=== PATIENT | female | born 1970 | race African-American/Black ===

== ENCOUNTER 2017-01-01 04:10 | Emergency (ER) | payer BC ==
--- NOTE | ~2017-01-01 | CT16 ---
[facility] A Service of [facility] RADIOLOGY TEXT RESULTS PATIENT: KAITLIN WILKINSON LOCATION: [facility] : 66 UNIT #: [id number] AGE: [address]: Blayne Hill MD SEX: F ORDER DR: [id number] [facility] [address] [place], [place] [address] [id number] E MR#: [id number] Acc #: [id number] NAME: KAITLIN WILKINSON. : 1970 SEX: F STUDY DATE/TIME: 01/01/2017 7:46 UNIT: [facility] ROOM: STUDY DESCRIPTION: CT Angio Chest for PE Attending Physician: Blayne Hill M.D. Ordering Physician: Blayne Hill M.D. Primary Care Physician: [facility] MEDICAL IMAGING REPORT This report is preliminary unless electronic signature is present REVISED REPORT SEE ADDENDUM EXAM CTA chest with contrast, pulmonary embolism protocol. DATE 01/01/2017 HISTORY Shortness of breath with exertion while laying flat for 5 days. Cough. Elevated D-dimer level today. Additional history of diabetes and hypertension. COMPARISON AP portable chest, 01/01/2017 at 0517. PROCEDURE 2 mm axial images through the chest after intravenous contrast administration. 3-D coronal MIP reformatted images were obtained. This CT exam was performed with one or more of the following radiation dose reduction techniques: automatic exposure control, adjustment of mA and/or kV according to patient size, and iterative reconstruction. FINDINGS No pulmonary embolism. No thoracic aortic aneurysm is seen. Small right greater left pleural effusions are present. The right pleural effusion layers to a depth of 4.1 cm. There is mild cardiac enlargement, particularly involving the left ventricle. No pericardial effusion is seen. There are mildly prominent mediastinal lymph nodes, including a precarinal [facility] A Service [facility] RADIOLOGY TEXT RESULTS PATIENT: KAITLIN WILKINSON LOCATION: [facility] : 66 UNIT #: [id number] AGE: [address]: Blayne Hill MD SEX: F ORDER DR: node measuring 1.5 cm short axis, a prevascular node measuring 7 mm short axis, subcarinal node measuring 2 cm short axis. Mildly prominent bilateral hilar lymph nodes are also seen, including a left hilar node measuring 1.3 cm short axis. Interstitial thickening is demonstrated within both lungs. Fine ground-glass densities are scattered in both lungs, somewhat greatest in an upper lobe distribution. Constellation of findings is favored to represent features of interstitial and alveolar pulmonary edema. There is no pneumothorax. Cholecystectomy changes are present. Remainder of the included upper abdominal organs are within normal limits. No acute osseous abnormalities are identified. IMPRESSION 1. No pulmonary embolism. 2. Constellation of findings is favored to represent changes of interstitial and alveolar pulmonary edema with small right greater than left pleural effusions. 3. Mild cardiac enlargement. 4. Cholecystectomy. Dictated by... Clarita Naranjo M.D. THIS IS AN ELECTRONICALLY VERIFIED REPORT Clarita Naranjo M.D. at 01/02/2017 8:[address] [facility]/w TD: 01/01/2017 09:33 JOB #: [id number] ADDENDUM Not mentioned in the above impression, there are mildly prominent mediastinal and hilar lymph nodes which are favored to represent benign reactive changes. Consider correlation with outside CT chest if available to document stability or short-term CT chest followup. Dictated by... [facility]. [facility] A Service of [facility] RADIOLOGY TEXT RESULTS PATIENT: KAITLIN WILKINSON LOCATION: [facility] #: [id number] : 66 UNIT #: [id number] AGE: [address]: Blayne Hill MD SEX: F ORDER DR: Clarita Naranjo M.D. THIS IS AN ELECTRONICALLY VERIFIED REPORT Clarita Naranjo M.D. at 01/04/2017 7:37 AM LL/tmw TD: 01/01/2017 09:41 JOB #: [id number] CC: Sovera/invision Please Delete MEDICAL IMAGING REPORT Page 1 of 1 COPY
--- NOTE | ~2017-01-01 | EKG ---
PATIENT: KAITLIN WILKINSON UNIT #: [id number] Ventricular Rate: 103 BPM Atrial Rate: 103 BPM P-R Interval: 146 ms QRS Duration: 96 ms Q-T Interval: 404 ms QTC Calculation(Bezet): 529 ms P [place]: 57 degrees Calculated R [place]: -12 degrees Calculated T [place]: 58 degrees Diagnosis Line: Sinus tachycardia Diagnosis Line: Possible Left atrial enlargement Diagnosis Line: Possible Anterior infarct , age undetermined Diagnosis Line: Abnormal ECG Diagnosis Line: No previous ECGs available Diagnosis Line: Confirmed by CHARLENE FARIA MD ([id number]) on 01/02/2017 Diagnosis Line: 11:33:21 PM INTERPRETING MD: GIANA DREW
--- NOTE | ~2017-01-01 | CR72 ---
[facility] A Service of [facility] RADIOLOGY TEXT RESULTS PATIENT: KAITLIN WILKINSON LOCATION: [facility] : 66 UNIT #: [id number] AGE: [address]: Blayne Hill MD SEX: F ORDER DR: [id number] [id number] [place], [place] [address] [id number] P MR#: [id number] Acc #: [id number] NAME: KAITLIN WILKINSON. : 1970 SEX: F STUDY DATE/TIME: 01/01/2017 5:17 UNIT: [facility] ROOM: STUDY DESCRIPTION: CR Chest Single View Portable Attending Physician: Blayne Hill M.D. Ordering Physician: Lonny Jett M.D. Primary Care Physician: [facility] MEDICAL IMAGING REPORT This report is preliminary unless electronic signature is present EXAM AP portable chest 01/01/2017 HISTORY 46-year-old female in the ED complaining of 5-day history of shortness of air and cough. TECHNIQUE AP portable upright chest x-ray. FINDINGS Mild cardiomegaly. Probable mild interstitial edema with small bilateral pleural effusions and bibasilar pulmonary atelectasis, greater on the right. These findings are new since the previous study of 06/26/2011. IMPRESSION Cardiomegaly, possible mild vascular congestion. Small pleural effusions, larger on the right. Dictated by... Man Callejas M.D. THIS IS AN ELECTRONICALLY VERIFIED REPORT Man Callejas M.D. at 01/01/2017 9:54 PM PAULINEW/lew TD: 01/01/2017 06:05 JOB #: [id number] MEDICAL IMAGING REPORT [facility] A Service [facility] RADIOLOGY TEXT RESULTS PATIENT: KAITLIN WILKINSON LOCATION: [facility] : 66 UNIT #: [id number] AGE: [address]: Blayne Hill MD SEX: F ORDER DR: Page 1 of 1 COPY
[~2017-01-01 04:10] MED LIST: AZITHROMYCIN250 MG PO; GLUCOPHAGE500 MG PO; GLUCOTROL PO; PREDNISONE PO; VERAPAMIL HCL120 MG PO; ZITHROMAX500 MG PO
[2017-01-01 05:25] LABS: BASOPHIL# 0.1 X10e3 (0-0.3); BASOPHIL% 0.9 % (0-2.5); EOSINOPHIL# 0.1 X10e3 (0-0.7); EOSINOPHIL% 1.3 % (0.0-7.0); HEMATOCRIT 43.8 % (35.0-45.0); HEMOGLOBIN 14.2 gm/dL (12.0-16.0); LYMPHOCYTE# 3.7 X10e3 (1.0-3.5); LYMPHOCYTE% 34.7 % (17.0-45.0); MEAN CELL VOLUME 88.9 FL (83-96); MEAN CORPUSCULAR HEMOGLOBIN 28.9 PG (28-34); MEAN CORPUSCULAR HGB CONC 32.5 g/dL (30-36); MONOCYTE# 0.8 X10e3 (0-1.0); MONOCYTE% 7.8 % (3.0-12.0); NEUTROPHIL# 5.8 X10e3 (1.5-7.1); NEUTROPHIL% 55.3 % (40-75); PLATELET COUNT 145 X10e3 (140-420); RED BLOOD COUNT 4.92 X10e (3.90-5.30); RED CELL DISTRIBUTION WIDTH 16.2 % (11.0-15.5); WHITE BLOOD COUNT 10.6 X10e3 (4.0-10.5)
[2017-01-01 05:28] LABS: DIFF IND NO
[2017-01-01 05:31] LABS: POC - CKMB <1.0 ng/mL (0.0-7.9); POC - TROPONIN <0.05 ng/mL (<=0.05)
[2017-01-01 05:38] LABS: INR 1.3; PROTHROMBIN TIME (PATIENT) 14.4 SECONDS (10.0-11.7)
[2017-01-01 05:56] LABS: BUN/CREATININE RATIO 12.22; CALCIUM SERUM 9.1 mg/dL (8.4-10.2); CREATININE SERUM 0.9 mg/dL (0.6-1.4); GLOM FILT RATE Estimated 87.7 mL/min (>60); POTASSIUM 4.7 mmol/L (3.5-5.1)
== END 2017-01-01 10:58 | disposition home or self-care (01) ==
LOC: CED 04:10
PROVIDERS: Emergency Medicine
DX: I11.0 Hypertensive heart disease with heart failure (principal); I50.9 Heart failure, unspecified; E11.9 Type 2 diabetes mellitus without complications; Z90.49 Acquired absence of other specified parts of digestive tract
CPT/HCPCS: 36415; 71010; 71275; 80048; 82553; 82947; 83880; 84484; 85025; 85379; 85610; 85730; 93005; 94640; 96361; 96374; 96375; 99285; J1885; Q9967

== ENCOUNTER 2017-01-01 23:08 | Emergency (ER) | payer BC ==
--- NOTE | ~2017-01-01 | EKG ---
PATIENT: KAITLIN WILKINSON UNIT #: [id number] Ventricular Rate: 103 BPM Atrial Rate: 103 BPM P-R Interval: 146 ms QRS Duration: 92 ms Q-T Interval: 372 ms QTC Calculation(Bezet): 487 ms P [place]: 60 degrees Calculated R [place]: -5 degrees Calculated T [place]: 89 degrees Diagnosis Line: Sinus tachycardia with Premature atrial complexes Diagnosis Line: Possible Left atrial enlargement Diagnosis Line: Nonspecific T wave abnormality Diagnosis Line: Abnormal ECG Diagnosis Line: When compared with ECG of 01-JAN-2017 05:20, Diagnosis Line: (unconfirmed) Diagnosis Line: Premature atrial complexes are now Present Diagnosis Line: Confirmed by CHARLENE FARIA MD ([id number]) on 01/02/2017 Diagnosis Line: 11:53:03 PM INTERPRETING MD: GIANA DREW
--- NOTE | ~2017-01-01 | CR72 ---
[facility] A Service of [facility] RADIOLOGY TEXT RESULTS PATIENT: KAITLIN WILKINSON LOCATION: [facility] : 66 UNIT #: [id number] AGE: [address]: Wilver Wiley MD SEX: F ORDER DR: [id number] [facility] [address] [place], [place] [address] [id number] E MR#: [id number] Acc #: [id number] NAME: KAITLIN WILKINSON : 1970 SEX: F STUDY DATE/TIME: 01/02/2017 0:36 UNIT: [facility] ROOM: STUDY DESCRIPTION: CR Chest Single View Portable Attending Physician: Wilver Wiley M.D. Ordering Physician: Wilver Wiley M.D. Primary Care Physician: [facility] MEDICAL IMAGING REPORT This report is preliminary unless electronic signature is present EXAM AP portable chest, 01/02/2017. HISTORY 46-year-old female in the ED with 2-day history of shortness of air. TECHNIQUE AP portable upright chest x-ray. FINDINGS Moderate cardiomegaly, mild diffuse interstitial pulmonary edema and small bilateral pleural effusions, greater on the right. Findings suggest vascular congestion. There has been no significant change since chest x-ray and chest CT obtained yesterday. IMPRESSION 1. Cardiomegaly with mild interstitial edema and small bilateral pleural effusions. 2. No change since yesterday. Dictated by... Man Callejas M.D. THIS IS AN ELECTRONICALLY VERIFIED REPORT Man Callejas M.D. at 01/02/2017 10:00 PM BECKY/bob TD: 01/02/2017 12:19 JOB #: [id number] MEDICAL IMAGING REPORT Page 1 of 1 COPY
[2017-01-02 00:52] LABS: BASOPHIL# 0.1 X10e3 (0-0.3); BASOPHIL% 1.2 % (0-2.5); EOSINOPHIL# 0.2 X10e3 (0-0.7); EOSINOPHIL% 1.6 % (0.0-7.0); HEMATOCRIT 43.5 % (35.0-45.0); LYMPHOCYTE# 3.9 X10e3 (1.0-3.5); LYMPHOCYTE% 38.1 % (17.0-45.0); MEAN CELL VOLUME 88.3 FL (83-96); MEAN CORPUSCULAR HEMOGLOBIN 28.5 PG (28-34); MEAN CORPUSCULAR HGB CONC 32.3 g/dL (30-36); MEAN PLATELET VOLUME 10.4 FL (6.5-11.5); MONOCYTE# 0.5 X10e3 (0-1.0); MONOCYTE% 5.1 % (3.0-12.0); NEUTROPHIL# 5.6 X10e3 (1.5-7.1); PLATELET COUNT 165 X10e3 (140-420); RED BLOOD COUNT 4.93 X10e (3.90-5.30); WHITE BLOOD COUNT 10.3 X10e3 (4.0-10.5)
[2017-01-02 00:53] LABS: POC - CKMB <1.0 ng/mL (0.0-7.9); POC - TROPONIN <0.05 ng/mL (<=0.05)
[2017-01-02 00:56] LABS: DIFF IND NO
[2017-01-02 01:14] LABS: BILIRUBIN, DIRECT 0.2 mg/dL (0.0-0.2); BILIRUBIN,INDIRECT 0.5 mg/dL (0.0-0.9); BILIRUBIN,TOTAL 0.7 mg/dL (0.2-2.0); BUN/CREATININE RATIO 12.5; CALCIUM SERUM 8.9 mg/dL (8.4-10.2); CREATININE SERUM 0.8 mg/dL (0.6-1.4); GLOM FILT RATE Estimated 101.1 mL/min (>60); POTASSIUM 4.1 mmol/L (3.5-5.1); PROTEIN TOTAL SERUM 6.4 g/dL (6.0-8.3)
[2017-01-03] MEDS ORDERED: LEVEMIR100 UNITS/ SUBQ ×2 (17:52→17:53)
[2017-01-03] MEDS ORDERED: METFORMIN PO (17:52)
[2017-01-03] MEDS ORDERED: LIPITOR PO (17:54)
[2017-01-03] MEDS ORDERED: WELLBUTRIN SR150 M1 PO (17:56)
== END 2017-01-02 01:42 | disposition home or self-care (01) ==
LOC: CED 23:08
PROVIDERS: Emergency Medicine
DX: I11.0 Hypertensive heart disease with heart failure (principal); I50.9 Heart failure, unspecified; E11.9 Type 2 diabetes mellitus without complications; Z90.49 Acquired absence of other specified parts of digestive tract; F17.200 Nicotine dependence, unspecified, uncomplicated
CPT/HCPCS: 36415; 71010; 80048; 80076; 82553; 83880; 84484; 85025; 93005; 96374; 99285; J1940

== ENCOUNTER 2017-01-03 12:07 | Inpatient (IN) | payer BC ==
[~2017-01-03] VITALS: Ht 175.3 cm; Wt 87.5 kg
--- NOTE | ~2017-01-03 | DS ---
Unit #: [id number] #: [id number] Patient: KAITLIN WILKINSON [id number] [facility]. [address] [place], [place] [address] [id number] I MR#: [id number] NAME: KAITLIN WILKINSON. ROOM: 550 Age: 46 Sex: F Admission Date: 01/03/2017 : 1970 Discharge Date: Attending Physician: Tiara Barth M.D. Primary Care Physician: [facility]. DISCHARGE SUMMARY ADDENDUM REPORT The patient was to be discharged home over the weekend; however, the discharge was withheld because of hypotension. The patient's blood pressure was as low as 79/50 mmHg. Coreg was decreased to 3.125 mg b.i.d. She did receive Entresto starting 01/06/2017 but the patient remained hypotensive. Entresto was discontinued. The patient was euvolemic on examination. IV diuretics were transitioned to oral. The patient was ambulated in the hallway without any additional shortness of breath. She had no weakness or dizziness. Repeat blood pressure 101/80 mmHg. She wants to go home and is stable for discharge. MEDICATION CHANGES 1. Carvedilol 3.125 mg b.i.d. 2. Furosemide 20 mg b.i.d. 3. Lisinopril [address] Barth will make decision regarding life vest and AICD. Life vest is pending insurance approval. No work until seen in the office. Dictated by... Marilyn BarreraPSofiaRSofiaN. for Eddy Dos Santos/jon TD: 01/07/2017 15:07 JOB #: [id number] DISCHARGE SUMMARY Page 1 of 1 X Hilario Paredes APRN X DISCHARGE SUMMARY
--- NOTE | ~2017-01-03 | CO ---
Unit #: [id number] #: [id number] Patient: KAITLIN WILKINSON [id number] [address] [place], [place] [address] [id number] I MR#: [id number] NAME: KAITLIN WILKINSON. ROOM: 550 Age: 46 Sex: F Admission Date: 01/03/2017 : 1970 Attending Physician: Tiara Barth M.D. Primary Care Physician: [facility] Consultation Date: 01/04/2017 CONSULTATION REPORT REASON FOR CONSULTATION Uncontrolled diabetes mellitus. HISTORY OF PRESENT ILLNESS This is a 46-year-old female with history of type 2 diabetes mellitus, poorly controlled; noncompliance with the diet and medications; history of tobacco use; history of alcohol use. She is admitted with increasing shortness of air, palpitations, increased lower extremity swelling for last few weeks. She has been admitted with the impression of the acute systolic heart failure. She has ejection fraction of only 10%. On her labs, she was found to have the A1c of 11.7%. I have been asked to see the patient for further management. PAST MEDICAL HISTORY Type 2 diabetes mellitus, tobacco use, depression. FAMILY HISTORY Noncontributory. ALLERGIES Reviewed with the patient, she has no known drug allergies. MEDICATIONS At home, Glucophage 1000 mg daily, Levemir 28 units in the morning, Levemir 18 units at bedtime, Lipitor doses on 80 mg daily, Wellbutrin 150 mg b.i.d. REVIEW OF SYSTEMS 12-point review of system is completed remarkable as noted in HPI for the lower extremity swelling, shortness of air, palpitations, hyperglycemia. Declines any urgency, frequency, or dysuria. No chest pains. Rest of the 12-point review of system is unremarkable. PHYSICAL EXAMINATION GENERAL: She looks comfortable in the bed, lying in the bed. VITAL SIGNS: Temperature 98.5, respiratory rate 18, blood pressure 100/71. Weight is 192 pounds. BMI is 28. HEENT: EOMI. Pupils equally reactive to light. NECK: Supple. No thyromegaly noted. CHEST: Good air entry. CVS: Regular rhythm. No murmurs. ABDOMEN: Soft and nontender. Bowel sounds positive. EXTREMITIES: She does have an edema. No ulcers. NEUROLOGIC: Nonfocal. Moving all extremities. Unit #: [id number] #: [id number] Patient: KAITLIN WILKINSON SKIN: No rash or ulcers noted. ASSESSMENT 1. Type 2 diabetes mellitus, poorly controlled due to poor compliance with the diet and medications. A1c of 11.7%. 2. Congestive heart failure, systolic. 3. Cardiomyopathy with ejection fraction 10%. PLAN We will change the Levemir to 25 units b.i.d. Add NovoLog 10 units each meal. Get the nutrition consult. Limit carbs to 45 g per meal. Increase supplemental insulin to the medium dose. Accu-Cheks a.c. and h.s. I discussed with the patient at length about diet modification and need for compliance and discussed the complications of diabetes including retinopathy, end-stage renal disease, amputations risk, and cardiovascular risk. Thanks again for consultation. Dictated by... Eddy Anand/sally TD: 01/04/2017 19:36 JOB #: [id number] CONSULTATION REPORT Page 1 of 1 X Jim Robles MD X CONSULTATION REPORT
--- NOTE | ~2017-01-03 | EKG ---
PATIENT: KAITLIN WILKINSON UNIT #: [id number] Ventricular Rate: 87 BPM Atrial Rate: 87 BPM P-R Interval: 162 ms QRS Duration: 100 ms Q-T Interval: 434 ms QTC Calculation(Bezet): 522 ms P [place]: 59 degrees Calculated R [place]: -16 degrees Calculated T [place]: 48 degrees Diagnosis Line: Normal sinus rhythm Diagnosis Line: Possible Left atrial enlargement Diagnosis Line: T wave abnormality, consider lateral ischemia Diagnosis Line: Prolonged QT Diagnosis Line: Abnormal ECG Diagnosis Line: When compared with ECG of 02-JAN-2017 00:32, Diagnosis Line: Premature atrial complexes are no longer Present Diagnosis Line: Confirmed by CHARLENE FARIA MD ([id number]) on 01/07/2017 Diagnosis Line: 2:45:18 PM INTERPRETING MD: GIANA DREW
--- NOTE | ~2017-01-03 | DS ---
Unit #: [id number] #: [id number] Patient: KAITLIN WILKINSON [id number] [address] [address] [id number] MR#: [id number] NAME: KAITLIN WILKINSON. ROOM: 550 Age: 46 Sex: F Admission Date: 01/03/2017 : 1970 Discharge Date: 01/06/2017 Attending Physician: Tiara Barth M.D. Primary Care Physician: [facility] DISCHARGE SUMMARY DISCHARGE DIAGNOSES 1. Acute systolic congestive heart failure, newly diagnosed. 2. Severe cardiomyopathy with an ejection fraction of 10% like viral/nonischemic. 3. Normal coronaries, status post cardiac catheterization on 01/05/2017. 4. Active tobacco abuse. 5. Diabetes mellitus, type 2. 6. Hyperlipidemia. PAST MEDICAL HISTORY Active tobacco abuse, diabetes mellitus type 2. Depression. DISCHARGE MEDICATIONS 1. Wellbutrin 150 mg p.o. b.i.d. 2. Metformin 1000 mg p.o. daily 3. Coreg 6.25 mg p.o. b.i.d. 4. Furosemide 20 mg p.o. b.i.d. 5. Lipitor 40 mg p.o. q.h.s. 6. Levemir 25 units subcu b.i.d. 7. NovoLog 10 units subcu t.i.d. before meals 8. Aspirin 81 mg p.o. daily 9. Entresto 24/26 mg one tablet p.o. b.i.d., first dose to be given on 01/07/2017 10. Potassium chloride 20 mEq p.o. daily Final medications may change due to blood pressure reading at discharge. HOSPITAL COURSE This is a 46-year-old female, known to Dr. Barth in the office. The patient was seen in the office on 01/03/2017 with complaints of shortness of breath. According to documentation, she was treated with a Z-Diego and Levaquin for "pneumonia" over the summer but she never got better. Since that time, she has not felt well and she has been short of breath. She denies any dizziness, palpitations, or syncope. There are no reports of chest pain. she does have a history of drinking two times a month but not on a regular basis. She does actively smoke a pack of cigarettes over three days. She was recommended for admission to the hospital for new onset congestive heart failure. Echocardiogram was completed in the office and revealed an ejection fraction of 10%. She was started on a 2 gram sodium diet and fluid restriction. She was given IV Lasix. She was started on a beta diogo and Toni inhibitor. After admission to the hospital, she initially refused her medications. Upon discussion with the patient, she agreed to take the medications as prescribed. Hemoglobin A1c was obtained due to hypoglycemia. The Unit #: [id number] #: [id number] Patient: KAITLIN WILKINSON patient's A1c resulted 11.7. Dr. Robles, with endocrinology, was consulted. Her Levemir was increased and she was started on NovoLog 10 units before meals three times a day. Her glucose levels improved. Dietitian was consulted and she was provided education on a low carbohydrate diet. She was taken for cardiac catheterization on 01/05/2017. She was found to have normal coronaries. Ejection fraction was 10%. She tolerated the procedure well and was transferred to intermediate telemetry. She was going to be discharged but her blood pressure was borderline low. She will be kept overnight for further monitoring. She has been placed on Entresto. Her first dose will be given tomorrow after thirty-six hours of washout from lisinopril. 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 She is going to be fitted for life vest. She has been instructed to follow up in the office next week for a blood pressure check. On 01/17/2017, at 1:15, she will have a limited 2D echocardiogram to reassess LV function. After the echocardiogram, Dr. Barth will determine when she can go back to work. Her Lasix has been changed to oral dosing. She is on a beta diogo and statin. She will need a hemoglobin A1c as an outpatient since her insulin has been adjusted. The importance of taking her medications has been discussed at length. She has been educated on low sodium diet and fluid restriction. She has been instructed to call the office for weight gain greater than three pounds, shortness of breath, or lower extremity edema. The patient verbalizes understanding. CONSULTANTS Dr. Robles with endocrinology [facility]UD[facility]: White blood cell count 8.8, hemoglobin 13.5, hematocrit 42.6, platelets 178, sodium 140, potassium 3.6, chloride 102, CO2 29, BUN 18, creatinine 0.9, glucose 99, total protein 5.7, albumin 2.9, AST 31, ALT 34, alkaline phosphatase 114, BNP is 781, hemoglobin A1c 11.7, total cholesterol 128, triglycerides 180, LDL 73, HDL 19. TSH 1.4, INR 1.2. IMAGING: Chest x-ray on January 02, 2017, revealed cardiomegaly of mild interstitial edema and small bilateral pleural effusions. Recent CTA of the chest, on 01/01/2017, revealed no PE. No thoracic aortic aneurysm. Small right greater than left pleural effusion. Right pleural effusion with layers to a depth of 0.1 cm, mild cardiac enlargement particularly involving the left ventricle. No pericardial effusion is seen. Mildly prominent mediastinal lymph nodes including a precarinal node measuring 1.5 cm short axis. Prevascular node measuring 7 mm, short axis, subcarinal node measuring 2 cm, short axis, mildly prominent bilateral hilar lymph nodes seen including a left hilar node measuring 1.3 cm short axis. CARDIOVASCULAR: Electrocardiogram reveals normal sinus rhythm with a ventricular rate of 80 beats per minute. Nonspecific ST-T wave changes. Loss of R-wave in the anterior leads. Mild T-wave inversion in the lateral leads. QTC prolonged to 522 msec. PHYSICAL EXAMINATION VITAL SIGNS: Temperature 97.5, pulse 93, blood pressure 98/67. CONSTITUTIONAL: This is a 46-year-old female no acute distress. Unit #: [id number] #: [id number] Patient: KAITLIN WILKINSON SKIN: Warm and dry. NECK: Supple. No jugular venous distention. No hepatojugular reflux. Normal carotid upstrokes. No carotid bruits auscultated. HEART: S1 and S2. Regular rate and rhythm. No murmurs, rubs, or gallops. LUNGS: Bilateral breath sounds have good air entry into all lung olmos. Respirations even and unlabored. No rales, rhonchi, or wheezes. ABDOMEN: Soft, nontender, and nondistended. Positive bowel sounds auscultated in all four quadrants. EXTREMITIES: Bilateral extremities have no pretibial or pitting edema. DP and PT pulses are +3. Capillary refill less than two seconds. DISCHARGE INSTRUCTIONS 1. The patient will be discharged home presumably on 01/06/2017. 2. Post-cath instructions provided. 3. CHF education provided including daily weights. The patient has been instructed to call the office for weight gain greater than three pounds, shortness of breath, or lower extremity edema. DISCHARGE DIET 1. Healthy heart 2 gram sodium with 1800 mL daily fluid restriction. 2. Life vest asked order due to severe cardiomyopathy. 3. The patient will need a repeat hemoglobin A1c due to insulin adjustments. 4. She is instructed to follow up with her primary care provider in one-to-two weeks. 5. Follow up in the office next week with Dr. Barth for a blood pressure check. 6. Follow up in the office on 01/17/2017 at 1:15 p.m. for a limited 2D echocardiogram to reassess LV function. 7. Follow up with Dr. Barth February 23, 2017 at 11:00 a.m. for an office appointment. Dictated by... Lin Justin APRN for Eddy Dos Santos TD: 01/07/2017 14:24 JOB #: [id number] DISCHARGE SUMMARY Page 1 of 1 X X DISCHARGE SUMMARY
[2017-01-03] MEDS ORDERED: LEVEMIR100 UNITS/ SUBQ ×2 (17:52→17:53)
[2017-01-03] MEDS ORDERED: METFORMIN PO (17:52)
[2017-01-03] MEDS ORDERED: LIPITOR PO (17:54)
[2017-01-03] MEDS ORDERED: WELLBUTRIN SR150 M1 PO (17:56)
[2017-01-04 06:16] LABS: HEMOGLOBIN 13.6 gm/dL (12.0-16.0); MEAN CELL VOLUME 88.9 FL (83-96); MEAN CORPUSCULAR HEMOGLOBIN 28.1 PG (28-34); MEAN CORPUSCULAR HGB CONC 31.6 g/dL (30-36); MEAN PLATELET VOLUME 10.2 FL (6.5-11.5); RED BLOOD COUNT 4.84 X10e (3.90-5.30); RED CELL DISTRIBUTION WIDTH 16.2 % (11.0-15.5); WHITE BLOOD COUNT 8.1 X10e3 (4.0-10.5)
[2017-01-04 07:19] LABS: ALBUMIN SERUM 2.9 g/dL (3.5-5.0); BILIRUBIN, DIRECT 0.2 mg/dL (0.0-0.2); BILIRUBIN,INDIRECT 0.4 mg/dL (0.0-0.9); BILIRUBIN,TOTAL 0.6 mg/dL (0.2-2.0); CALCIUM SERUM 8.7 mg/dL (8.4-10.2); GLOM FILT RATE Estimated 77.2 mL/min (>60); POTASSIUM 3.9 mmol/L (3.5-5.1); PROTEIN TOTAL SERUM 5.7 g/dL (6.0-8.3)
[2017-01-05 04:55] LABS: HEMATOCRIT 42.6 % (35.0-45.0); HEMOGLOBIN 13.5 gm/dL (12.0-16.0); MEAN CELL VOLUME 88.5 FL (83-96); MEAN CORPUSCULAR HEMOGLOBIN 28.2 PG (28-34); MEAN CORPUSCULAR HGB CONC 31.8 g/dL (30-36); MEAN PLATELET VOLUME 10.4 FL (6.5-11.5); RED BLOOD COUNT 4.81 X10e (3.90-5.30); RED CELL DISTRIBUTION WIDTH 16.6 % (11.0-15.5); WHITE BLOOD COUNT 8.8 X10e3 (4.0-10.5)
[2017-01-05 05:18] LABS: INR 1.2; PARTIAL THROMBOPLASTIN TIME 26.4 SECONDS (23.5-31.3); PROTHROMBIN TIME (PATIENT) 12.7 SECONDS (10.0-11.7)
[2017-01-05 06:55] LABS: CALCIUM SERUM 8.7 mg/dL (8.4-10.2); CREATININE SERUM 0.9 mg/dL (0.6-1.4); GLOM FILT RATE Estimated 87.7 mL/min (>60); POTASSIUM 3.6 mmol/L (3.5-5.1)
[2017-01-05] MEDS ORDERED: ENTRESTO 24 MG1 EACH PO (12:37)
[2017-01-05] MEDS ORDERED: LASIX20 MG PO (12:37)
[2017-01-05] MEDS ORDERED: LIPITOR40 MG PO (12:38)
[2017-01-05] MEDS ORDERED: KCL PO (12:38)
[2017-01-05] MEDS ORDERED: COREG PO (12:39)
[2017-01-05] MEDS ORDERED: ASPIRIN81 MG PO (12:39)
[2017-01-05] MEDS ORDERED: NOVOLOG100 UNITS/ SUBQ (12:57)
[2017-01-06 06:33] LABS: CREATININE SERUM 0.9 mg/dL (0.6-1.4); GLOM FILT RATE Estimated 87.7 mL/min (>60)
[2017-01-07] MEDS ORDERED: COREG PO (14:09)
[2017-01-07] MEDS ORDERED: ZESTRIL10 M2 PO (14:12)
== END 2017-01-07 17:00 | disposition home or self-care (01) | DRG 287 ==
LOC: C5B 12:07 → UNDOADMOB 12:07 → C5B 12:07 → UNDOADMOB 12:16 → C5B 12:16
PROVIDERS: Internal Medicine Cardiovascular Disease
PROC: 4A023N7 Measurement of Cardiac Sampling and Pressure, Left Heart, Percutaneous Approach (ICD-10-PCS; principal; 2017-01-05)
PROC: B211YZZ Fluoroscopy of Multiple Coronary Arteries using Other Contrast (ICD-10-PCS; 2017-01-05)
PROC: B215YZZ Fluoroscopy of Left Heart using Other Contrast (ICD-10-PCS; 2017-01-05)
DX: I50.21 Acute systolic (congestive) heart failure (principal); I42.8 Other cardiomyopathies; I95.9 Hypotension, unspecified; E11.65 Type 2 diabetes mellitus with hyperglycemia; Z91.11 Patient's noncompliance with dietary regimen; Z91.14 Patient's other noncompliance with medication regimen; Z79.4 Long term (current) use of insulin; B33.24 Viral cardiomyopathy; E78.5 Hyperlipidemia, unspecified
CPT/HCPCS: 80048; 80061; 80076; 82565; 82947; 83036; 84443; 85027; 85610; 85730; 93005; 99152; 99153; C1769; C1887; C1894; J1644; J1650; J1815; J1940; J2250; J3010